=== PATIENT | female | born 1965 | race Caucasian/White ===

== ENCOUNTER 2016-05-02 10:47 | Emergency (ER) | payer SELFPAY ==
[~2016-05-02] VITALS: Ht 170.2 cm; Wt 72.0 kg
[~2016-05-02 10:47] MED LIST: ALPR0.5T99; METHADONE
[2016-05-02 10:54] VITALS: BP 167/74; PULSE 86; RESP 20; TEMP 97.5; O2SAT 98
[2016-05-02 11:03] VITALS: BP 178/88; PULSE 83; RESP 16; O2SAT 99
[2016-05-02] MEDS ORDERED: METH10TA PO (11:06)
[2016-05-02] MEDS ORDERED: XANA2TAB2 PO (11:06)
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
== END 2016-05-02 11:15 | disposition left against medical advice (07) ==
LOC: NEPC 10:47
DX: R53.1 Weakness (principal); F17.210 Nicotine dependence, cigarettes, uncomplicated; F12.10 Cannabis abuse, uncomplicated
CPT/HCPCS: 99283

== ENCOUNTER 2016-09-17 17:45 | Observation (INO) | payer SELFPAY ==
[~2016-09-17] VITALS: Ht 170.2 cm; Wt 70.5 kg
[~2016-09-17 17:45] MED LIST changes: -ALPR0.5T99; +METH10TA PO; -METHADONE; +XANA2TAB2 PO
[2016-09-17 17:49] VITALS: BP 175/87; PULSE 90; RESP 18; TEMP 99.1; O2SAT 97
--- NOTE | 2016-09-17 17:56 | PD ---
Physical Exam Date Seen by Provider: Sep 17, 2016 Time Seen by Provider: 17:53 Narrative 51 yo female here for evaluation of chest pains. Going on for about a year. Not seen anybody for this. Thought it was something else. She has had multiple falls. Seems like it comes and goes. Restarted a few days ago which prompted visit here. Pain is sharp took aspirin with relief. Vitals are stable in triage. Awaiting bed placement. Data Data Last Documented VS Vital Signs Date Time Temp Pulse Resp B/P Pulse Ox O2 Delivery O2 Flow Rate FiO2 09/17/16 17:49 99.1 90 18 175/87 97 Room Air [facility] Medical Record Reviewed: Yes Supervised Visit with CAIT: No Ernesto Hodgson Sep 17, 2016 17:56
[2016-09-17 19:04] LABS: AUTOMATED NEUTROPHIL # 3.7 TH/MM3 (1.8-7.7); BASOPHIL # 0.1 TH/MM3 (0-0.2); BASOPHIL % 0.8 % (0.0-2.0); EOSINOPHIL # 0.2 TH/MM3 (0-0.4); EOSINOPHIL % 2.7 % (0.0-4.0); HEMO FLAGS DIFF FINAL; LYMPH % 34.7 % (9.0-44.0); LYMPHOCYTE # 2.3 TH/MM3 (1.0-4.8); MEAN CELL VOLUME 91.5 FL (80.0-100.0); MEAN CORPUSCULAR HEMOGLOBIN 32.5 PG (27.0-34.0); MEAN CORPUSCULAR HGB CONC 35.5 % (32.0-36.0); NEUT % 54.8 % (16.0-70.0); PLATELET COUNT 243 TH/MM3 (150-450); RED CELL DISTRIBUTION WIDTH 12.5 % (11.6-17.2); WHITE BLOOD COUNT 6.7 TH/MM3 (4.0-11.0)
[2016-09-17 19:16] LABS: ANION GAP 7 MEQ/L (5-15); BICARBONATE 26.6 MEQ/L (21.0-32.0); BLOOD UREA NITROGEN 14 MG/DL (7-18); CHLORIDE 103 MEQ/L (98-107); GLOMERULAR FILTRATION RATE 86 ML/MIN (>89); POTASSIUM 3.6 MEQ/L (3.5-5.1); SODIUM (NA) 137 MEQ/L (136-145)
[2016-09-17 19:19] LABS: CREATINE KINASE 111 U/L (26-192)
[2016-09-17 19:31] LABS: CKMB 1.7 NG/ML (0.5-3.6)
[2016-09-17 20:09] VITALS: BP 154/74; PULSE 77; RESP 20; O2SAT 98
[2016-09-17] MEDS ORDERED: ASPI81TA81 PO (20:09)
[2016-09-17] MEDS ORDERED: METH10TA PO (20:09)
[2016-09-17] MEDS ORDERED: ASPIRIN 81 MG CHEW TAB CHEW ONE (20:30)
[2016-09-17] MEDS ORDERED: NITROGLYCERIN 0.4 MG SL 25 TABS/BTL SL ONE (20:30)
--- NOTE | 2016-09-17 20:34 | PD ---
Physical Exam Date Seen by Provider: Sep 17, 2016 Time Seen by Provider: 20:31 Narrative GENERAL: Well-developed well-nourished female in no acute distress no respiratory distress; GCS 15 SKIN: Warm and dry. HEAD: Normocephalic. EYES: No scleral icterus. No injection or drainage. NECK: Supple, trachea midline. No JVD or lymphadenopathy. CARDIOVASCULAR: Regular rate and rhythm without murmurs, gallops, or rubs. RESPIRATORY: Breath sounds equal bilaterally. No accessory muscle use. GASTROINTESTINAL: Abdomen soft, non-tender, nondistended. MUSCULOSKELETAL: No cyanosis, or edema. BACK: Nontender without obvious deformity. No CVA tenderness. Data Data Last Documented VS Vital Signs Date Time Temp Pulse Resp B/P Pulse Ox O2 Delivery O2 Flow Rate FiO2 09/17/16 20:49 78 16 153/96 98 Room Air 09/17/16 17:49 99.1 Orders Electrocardiogram (09/17/16 18:11) Complete Blood Count With Diff (09/17/16 18:11) Basic Metabolic Panel (Bmp) (09/17/16 18:11) Ckmb (Isoenzyme) Profile (09/17/16 18:11) Troponin I (09/17/16 18:11) CKMB (09/17/16 18:20) CKMB% (09/17/16 18:20) Prothrombin Time / Inr (Pt) (09/17/16 20:28) Act Partial Throm Time (Ptt) (09/17/16 20:28) D-Dimer (09/17/16 20:28) Chest, Pa & Lat (09/17/16 ) Aspirin Chew (Aspirin Chew) (09/17/16 20:30) Nitroglycerin Sl (Nitrostat Sl) (09/17/16 20:30) Drug Screen, Random Urine (09/17/16 20:35) Admit Order (Ed Use Only) (09/17/16 ) ^ Saline Lock (09/17/16 22:13) Resp Oxygen Ever C Titrat 1-4 L (09/17/16 ) Notify Dr: Other (09/17/16 22:13) Sodium Chloride 0.9% Flush (Ns Flush) (09/18/16 09:00) Sodium Chloride 0.9% Flush (Ns Flush) (09/17/16 22:15) Activity Bed Rest With Brp (09/17/16 22:13) Vital Signs (Adult) Q4H (09/17/16 22:13) Cardiac Rhythm .As Directed (09/17/16 22:13) Notify Dr: Other .PRN (09/17/16 22:13) Notify DrSilvia Parameters (09/17/16 22:13) Resp Oxygen Nasal Cannula (09/17/16 ) Ckmb (Isoenzyme) Profile (09/17/16 22:13) Ckmb (Isoenzyme) Profile (09/18/16 01:13) Troponin I (09/17/16 22:13) Troponin I (09/18/16 01:13) Electrocardiogram (09/17/16 22:13) Electrocardiogram (09/18/16 01:13) ^ Obtain (09/17/16 22:13) Sodium Chloride 0.9% Flush (Ns Flush) (09/17/16 22:15) Sodium Chloride 0.9% Flush (Ns Flush) (09/18/16 09:00) Puff Ironer / Telemetry DHAVAL.Q8H (09/17/16 22:13) CKMB (09/18/16 01:30) CKMB% (09/18/16 01:30) Labs Laboratory Tests Test 09/17/16 09/17/16 18:20 20:52 White Blood Count 6.7 TH/MM3 Red Blood Count 4.70 MIL/MM3 Hemoglobin 15.3 GM/DL Hematocrit 43.0 % Mean Corpuscular Volume 91.5 FL Mean Corpuscular Hemoglobin 32.5 PG Mean Corpuscular Hemoglobin 35.5 % Concent Red Cell Distribution Width 12.5 % Platelet Count 243 TH/MM3 Mean Platelet Volume 8.7 FL Neutrophils (%) (Auto) 54.8 % Lymphocytes (%) (Auto) 34.7 % Monocytes (%) (Auto) 7.0 % Eosinophils (%) (Auto) 2.7 % Basophils (%) (Auto) 0.8 % Neutrophils # (Auto) 3.7 TH/MM3 Lymphocytes # (Auto) 2.3 TH/MM3 Monocytes # (Auto) 0.5 TH/MM3 Eosinophils # (Auto) 0.2 TH/MM3 Basophils # (Auto) 0.1 TH/MM3 CBC Comment DIFF FINAL Differential Comment Sodium Level 137 MEQ/L Potassium Level 3.6 MEQ/L Chloride Level 103 MEQ/L Carbon Dioxide Level 26.6 MEQ/L Anion Gap 7 MEQ/L Blood Urea Nitrogen 14 MG/DL Creatinine 0.71 MG/DL Estimat Glomerular Filtration 86 ML/MIN Rate Random Glucose 99 MG/DL Calcium Level 8.9 MG/DL Total Creatine Kinase 111 U/L Creatine Kinase MB 1.7 NG/ML Troponin I LESS THAN 0.02 NG/ML Prothrombin Time 10.2 SEC Prothromb Time International 0.9 RATIO Ratio Activated Partial 28.2 SEC Thromboplast Time D-Dimer Quantitative (PE/DVT) 0.24 MG/L FEU [facility] Medical Record Reviewed: Yes Supervised Visit with CAIT: Yes Interpretation(s) EKG normal sinus rhythm rate [address] elevation or injury pattern or ectopy noted d-dimer: 0.24, not elevated troponin I: 0.02, not elevatyed Last Impressions Chest X-Ray 09/17/16 0000 Signed Impressions: Service Date/Time: Saturday, September 17, 2016 20:57 - CONCLUSION: No acute disease. Austyn Huizar MD CBC & BMP Diagram 09/17/16 18:20 Vital Signs Date Time Temp Pulse Resp B/P Pulse Ox O2 Delivery O2 Flow Rate FiO2 09/17/16 20:49 78 16 153/96 98 Room Air 09/17/16 20:44 76 16 172/98 95 Room Air 09/17/16 20:09 77 20 154/74 98 Room Air 09/17/16 17:49 99.1 90 18 175/87 97 Room Air Differential Diagnosis Chest pain, atypical chest pain, ACS, [place], PE, musculoskeletal pain Narrative Course Patient with history of chest pain intermittently 1 year worsening recently such that she has started to use her father's subungual nitroglycerin with symptomatic relief. Patient reports when chest pain is present it is heavy patient has dull and radiates to her jaw. Patient does not report any shortness of breath sweats nausea vomiting neck shoulder back arm or abdominal pain. Patient does have history of chronic pain syndrome with previous opiate dependency currently on methadone as well as history of nighttime seizures for which she has reportedly prescribed Xanax by her primary care provider. Due to her symptoms reportedly patient was seen by her primary care provider today at 4 :30 PM and encouraged to come to the emergency room to have evaluation for possible PE. Patient has family history of cardiac disease with father age 80 still living with cardiac stents 2. Patient does admit to tobaccoism. Patient denies personal history of hypertension dyslipidemia diabetes or known CAD. Patient denies any recent long distance travel protracted bedrest her surgical procedure. Patient's had no lower from a pain or swelling. Patient denies chest pain as being pleuritic in nature. Patient states that she did take 81 mg aspirin today at 9 AM and that she does have discomfort in her chest at this time the reminds her of the pain that she has when she takes a subungual nitroglycerin. Pain is reportedly 3/10 in intensity. EKG has been done through triage shows sinus rhythm rate of 70. No acute ST elevation or injury pattern change or ectopy noted; labs performed while patient waiting to be seen reveals a troponin I of less than 0.02 and values otherwise in normal range. Coagulation studies d-dimer chest x-ray urine drug screen have been added to patient's evaluation. Aspirin 162 mg chewed has been ordered along with times one sublingual nitroglycerin. Plan will be to admit patient to chest pain center for further evaluation. Patient chest pressure free after sublingual nitroglycerin times one received aspirin troponin I less than 0.02, not elevated d-dimer 0.24, not elevated chest x-ray no acute process; patient will be admitted to chest pain center per protocol Physician Communication Physician Communication Plan Will admit to chest pain center per protocol observation Diagnosis Primary Impression: Chest pain Admitting Information Admitting Physician Requests: Observation Elissa Mejia MD Sep 17, 2016 20:34
[2016-09-17 20:44] VITALS: BP 172/98; PULSE 76; RESP 16; O2SAT 95
[2016-09-17 20:49] VITALS: BP 153/96; PULSE 78; RESP 16; O2SAT 98
--- NOTE | 2016-09-17 21:40 | RADRPT ---
EXAM DATE/TIME: 09/17/2016 20:57 [facility] COMPARISON: No previous studies available for comparison. INDICATIONS : Chest pain for 1 year MEDICAL HISTORY : None. SURGICAL HISTORY : None. ENCOUNTER: Initial ACUITY: 1 year PAIN SCORE: 5/10 LOCATION: Center of chest FINDINGS: PA and lateral views of the chest demonstrate the lungs to be symmetrically aerated without evidence of mass, infiltrate or effusion. The cardiomediastinal contours are unremarkable. Osseous structure s are intact. CONCLUSION: No acute disease. Austyn Huizar MD on September 17, 2016 at 21:38 Board Certified Radiologist. This report was verified electronically.
[2016-09-17 21:48] LABS: APTT (PATIENT) 28.2 SEC (24.3-30.1); INTERNATIONAL NORMALIZED RATIO 0.9 RATIO; PROTHROMBIN TIME - PATIENT 10.2 SEC (9.8-11.6)
[2016-09-17] MEDS ORDERED: SODIUM CHLORIDE 0.9% FLUSH 10 ML FLUSH IV FLUSH PRN (22:15)
[2016-09-17] MEDS ORDERED: SODIUM CHLORIDE 0.9% FLUSH 10 ML FLUSH IVF PRN (22:15)
[2016-09-17] MEDS ORDERED: ALPRAZolam 1 MG TAB PO ONE (22:30)
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
[2016-09-17 23:04] VITALS: BP 176/98
[2016-09-17 23:20] LABS: CREATINE KINASE 98 U/L (26-192)
[2016-09-18] VITALS: BP 165/80; PULSE 63; RESP 20; TEMP 97.7; O2SAT 97
[2016-09-18 00:14] VITALS: O2SAT 98
[2016-09-18 00:27] VITALS: PULSE 78
[2016-09-18 02:33] LABS: CREATINE KINASE 120 U/L (26-192)
[2016-09-18 02:45] LABS: CKMB 1.6 NG/ML (0.5-3.6)
[2016-09-18 03:25] VITALS: BP 118/64; PULSE 52; RESP 20; TEMP 99.2; O2SAT 96
[2016-09-18 04:00] VITALS: PULSE 52
[2016-09-18 04:13] VITALS: BP 130/58; PULSE 51; RESP 19; TEMP 98.6; O2SAT 94
[2016-09-18] MEDS ORDERED: ONDANSETRON HCL 4 MG/2 ML VIAL IV PRN (08:45)
[2016-09-18] MEDS ORDERED: NITROGLYCERIN 0.4 MG SL 25 TABS/BTL SL PRN (08:45)
[2016-09-18] MEDS ORDERED: ACETAMINOPHEN 500 MG CPLT PO PRN (08:45)
[2016-09-18] MEDS ORDERED: SODIUM CHLORIDE 0.9% FLUSH 10 ML FLUSH IV FLUSH SCH ×2 (09:00)
[2016-09-18] MEDS ORDERED: ASPIRIN 325 MG TAB PO SCH (09:00)
--- NOTE | 2016-09-18 17:08 | EKG ---
Date Performed: 09/18/2016 Time Performed: 03:18:59 PTAGE: 51 years EKG: SINUS BRADYCARDIA WITH SINUS ARRHYTHMIA BORDERLINE ECG PREVIOUS TRACING : 09/17/2016 18.15 Since previous tracing, no significant change noted DOCTOR: Miguel Mott Interpretating Date/Time 09/18/2016 17:07:00
--- NOTE | 2016-09-18 17:12 | EKG ---
Date Performed: 09/17/2016 Time Performed: 22:29:22 PTAGE: 51 years EKG: Sinus rhythm WITH SINUS ARRHYTHMIA NORMAL ECG PREVIOUS TRACING : 09/17/2016 18.15 Since previous tracing, no significant change noted DOCTOR: Miguel Mott Interpretating Date/Time 09/18/2016 17:10:39
--- NOTE | 2016-09-18 17:15 | EKG ---
Date Performed: 09/17/2016 Time Performed: 18:15:06 PTAGE: 51 years EKG: Sinus rhythm WITH SINUS ARRHYTHMIA POSSIBLE LEFT ATRIAL ENLARGEMENT BORDERLINE ECG PREVIOUS TRACING : 06/03/2006 07.49 Since previous tracing, no significant change noted DOCTOR: Miguel Mott Interpretating Date/Time 09/18/2016 17:14:18
== END 2016-09-18 09:51 | disposition left against medical advice (07) ==
LOC: NEPC 17:45 → NEDA 22:16 → NEPGCP 23:15
PROVIDERS: ADMIT Internal Medicine Interventional Cardiology; ATTEND Internal Medicine Interventional Cardiology
DX: R07.89 Other chest pain (principal); F43.10 Post-traumatic stress disorder, unspecified; F17.200 Nicotine dependence, unspecified, uncomplicated; F12.90 Cannabis use, unspecified, uncomplicated; G89.4 Chronic pain syndrome; Z82.49 Family history of ischemic heart disease and other diseases of the circulatory system; Z79.82 Long term (current) use of aspirin
CPT/HCPCS: 71020; 80048; 82550; 82552; 84484; 85025; 85379; 85610; 85730; 93005; 99285; G0378